=== PATIENT | female | born 1940 | race Caucasian/White ===

== ENCOUNTER → 2017-03-25 | Outpatient (CLI) | payer MEDICARE, BC ==
[~2017-03-25] MED LIST: NATURAL IRON65 MG PO; NO HOME MEDICATIONS; OCUVITE1 TA1 PO; PRINZIDE 12.5 M1 TAB PO; REFRESH TEARS 330 ML OP; ULTRAM 50MG TAB50 MG PO
== END ==
LOC: COL.RAD 07:13
DX: K63.0 Abscess of intestine (principal); K76.89 Other specified diseases of liver; N28.89 Other specified disorders of kidney and ureter; N20.0 Calculus of kidney
CPT/HCPCS: J7050; Q9967

== ENCOUNTER 2017-04-06 06:27 | Inpatient (IN) | payer MEDICARE, BC ==
[2017-04-06] VITALS (10 sets, daily range): BP systolic 91–139; BP diastolic 48–88; PULSE 77–109; TEMP 98–98.9
[~2017-04-06] VITALS: Ht 162.6 cm; Wt 68.2 kg
[~2017-04-06 06:27] MED LIST changes: -NATURAL IRON65 MG PO; -OCUVITE1 TA1 PO; -PRINZIDE 12.5 M1 TAB PO; -REFRESH TEARS 330 ML OP
[2017-04-06] MEDS ORDERED: PRINZIDE 12.5 M1 TAB PO (07:08)
[2017-04-06] MEDS ORDERED: NATURAL IRON65 MG PO (07:09)
[2017-04-06] MEDS ORDERED: OCUVITE1 TA1 PO (07:09)
[2017-04-06] MEDS ORDERED: REFRESH TEARS 330 ML OP (07:10)
[2017-04-06 11:27] LABS: MEAN CELL VOLUME 91 fl (80.0-100.0); MEAN CORPUSCULAR HGB CONC 32 g/dl (33.0-37.0); MEAN PLATELET VOLUME 9.6 fl (7.4-10.4); PLATELET COUNT 221 K/mm3 (130-400); RED BLOOD COUNT 3.49 M/mm3 (4.10-5.30); WHITE BLOOD COUNT 5.8 K/mm3 (4.8-10.8)
[2017-04-06 11:29] LABS: HEMATOCRIT 31.6 % (37.0-47.0); MEAN CORPUSCULAR HEMOGLOBIN 29 pg (27.0-31.0)
[2017-04-06 11:31] LABS: ADJUSTED CALCIUM 8.9 mg/dL (8.4-10.2); ALBUMIN 3.4 gm/dL (3.5-5.0); BILIRUBIN,TOTAL 0.7 mg/dL (0.0-1.0); CALCIUM 8.4 mg/dL (8.4-10.2); CREATININE, serum 0.77 mg/dL (0.52-1.25); POTASSIUM 3.2 mmol/L (3.4-5.0); TOTAL PROTEIN 6.3 gm/dL (6.4-8.2)
[2017-04-07] VITALS (10 sets, daily range): BP systolic 146–167; BP diastolic 57–79; PULSE 68–99; TEMP 97.8–99.1
[2017-04-08 00:20] VITALS: BP 145/76; PULSE 98; TEMP 99
[2017-04-08 05:09] VITALS: BP 161/70; PULSE 97; TEMP 98.5
[2017-04-08 06:39] LABS: CALCIUM 7.8 mg/dL (8.4-10.2); CREATININE, serum 0.73 mg/dL (0.52-1.25); POTASSIUM 3.7 mmol/L (3.4-5.0)
[2017-04-08 08:14] VITALS: BP 154/65; PULSE 95; TEMP 99.2
[2017-04-08 10:32] LABS: HEMOGLOBIN 10.5 g/dl (12.5-16.0)
[2017-04-08 12:55] VITALS: BP 152/64; PULSE 94; TEMP 99.5
[2017-04-08 23:38] VITALS: BP 188/90; PULSE 108; TEMP 98.9
[2017-04-09] VITALS (7 sets, daily range): BP systolic 136–180; BP diastolic 57–95; PULSE 102–111; TEMP 98–99.6
[2017-04-09 09:00] LABS: ADD PATHOLOGY DIFF REVIEW NO
[2017-04-09 09:20] LABS: HEMATOCRIT 34.8 % (37.0-47.0); HEMOGLOBIN 11.1 g/dl (12.5-16.0); MEAN CELL VOLUME 90 fl (80.0-100.0); MEAN CORPUSCULAR HEMOGLOBIN 29 pg (27.0-31.0); MEAN CORPUSCULAR HGB CONC 32 g/dl (33.0-37.0); MEAN PLATELET VOLUME 11.2 fl (7.4-10.4); PLATELET COUNT 286 K/mm3 (130-400); RED BLOOD COUNT 3.89 M/mm3 (4.10-5.30)
[2017-04-09 09:25] LABS: ADJUSTED CALCIUM 9.1 mg/dL (8.4-10.2); ALBUMIN 2.9 gm/dL (3.5-5.0); BILIRUBIN,TOTAL 0.4 mg/dL (0.0-1.0); CALCIUM 8.2 mg/dL (8.4-10.2); CREATININE, serum 0.64 mg/dL (0.52-1.25); POTASSIUM 3.5 mmol/L (3.4-5.0); TOTAL PROTEIN 5.7 gm/dL (6.4-8.2)
[2017-04-09 10:17] LABS: BAND 7 % (0-10); LYMPHOCYTE 7 % (20.0-51.0); NEUTROPHILS 82 % (42.0-75.2); PLATELET ESTIMATE NORMAL (NORMAL); TOTAL CELLS COUNTED 100
[2017-04-10 05:26] VITALS: BP 145/57; BP 153/62; PULSE 102; PULSE 95; TEMP 98.4; TEMP 99.3
[2017-04-10 07:22] LABS: ADD PATHOLOGY DIFF REVIEW NO
[2017-04-10 07:29] LABS: HEMATOCRIT 32.1 % (37.0-47.0); MEAN CELL VOLUME 91 fl (80.0-100.0); MEAN CORPUSCULAR HEMOGLOBIN 28 pg (27.0-31.0); MEAN CORPUSCULAR HGB CONC 31 g/dl (33.0-37.0); MEAN PLATELET VOLUME 10.4 fl (7.4-10.4); PLATELET COUNT 256 K/mm3 (130-400); RED BLOOD COUNT 3.54 M/mm3 (4.10-5.30); WHITE BLOOD COUNT 9.7 K/mm3 (4.8-10.8)
[2017-04-10 08:49] LABS: BAND 2 % (0-10); LYMPHOCYTE 13 % (20.0-51.0); NEUTROPHILS 79 % (42.0-75.2); PLATELET ESTIMATE NORMAL (NORMAL); TOTAL CELLS COUNTED 100
[2017-04-10 08:50] LABS: HYPOCHROMIA 1+
[2017-04-10 09:18] VITALS: BP 149/66; PULSE 97; TEMP 98.9
[2017-04-10 14:08] VITALS: BP 180/87; BP 186/71; PULSE 100; TEMP 99.3
[2017-04-10 16:41] VITALS: BP 172/70; PULSE 96; TEMP 98.9
[2017-04-10 22:53] VITALS: BP 177/79; PULSE 99; TEMP 98.7
[2017-04-11 04:52] VITALS: BP 175/71; PULSE 94; TEMP 98.2
[2017-04-11 09:33] VITALS: BP 178/69; PULSE 95; TEMP 97.4
[2017-04-11 13:01] VITALS: BP 169/74; PULSE 93; TEMP 99
[2017-04-11 16:48] VITALS: BP 207/74; PULSE 93; TEMP 98.9
[2017-04-11 21:40] VITALS: BP 152/67; PULSE 89; TEMP 99.6
[2017-04-12 02:32] VITALS: BP 186/75; PULSE 94; TEMP 98.4
[2017-04-12 06:06] VITALS: BP 173/65; PULSE 87; TEMP 97.8
[2017-04-12 09:42] VITALS: BP 170/70; PULSE 93; TEMP 98.2
[2017-04-12 14:40] VITALS: BP 165/77; PULSE 91; TEMP 98.9
[2017-04-12 18:28] VITALS: BP 157/72; PULSE 91; TEMP 97.9
[2017-04-12 22:00] VITALS: BP 151/65; PULSE 95; TEMP 98.4
[2017-04-13 05:00] VITALS: BP 153/66; PULSE 90; TEMP 97.6
[2017-04-13 09:40] VITALS: BP 164/72; PULSE 96; TEMP 98.4
== END 2017-04-13 12:30 | disposition home or self-care (01) | DRG 329 ==
LOC: SDCO 06:27 → JCC 10:35
PROVIDERS: Obstetrics & Gynecology; Surgery; Urology
PROC: 0DJD8ZZ Inspection of Lower Intestinal Tract, Via Natural or Artificial Opening Endoscopic (ICD-10-PCS; 2017-04-06)
PROC: 8E0W4CZ Robotic Assisted Procedure of Trunk Region, Percutaneous Endoscopic Approach (ICD-10-PCS; 2017-04-07)
PROC: 0DBV4ZX Excision of Mesentery, Percutaneous Endoscopic Approach, Diagnostic (ICD-10-PCS; 2017-04-07)
PROC: 0T9880Z Drainage of Bilateral Ureters with Drainage Device, Via Natural or Artificial Opening Endoscopic (ICD-10-PCS; 2017-04-07)
PROC: 0DTN4ZZ Resection of Sigmoid Colon, Percutaneous Endoscopic Approach (ICD-10-PCS; principal; 2017-04-07 11:30)
PROC: 0UT64ZZ Resection of Left Fallopian Tube, Percutaneous Endoscopic Approach (ICD-10-PCS; 2017-04-07 11:30)
PROC: 0UT14ZZ Resection of Left Ovary, Percutaneous Endoscopic Approach (ICD-10-PCS; 2017-04-07 11:30)
DX: C18.7 Malignant neoplasm of sigmoid colon (principal); K63.1 Perforation of intestine (nontraumatic); C18.6 Malignant neoplasm of descending colon; C79.89 Secondary malignant neoplasm of other specified sites; I10 Essential (primary) hypertension; D50.0 Iron deficiency anemia secondary to blood loss (chronic)
CPT/HCPCS: A4314; A9284; C1769; J0690; J1100; J1170; J1650; J1956; J2250; J2370; J2405; J2550; J2704; J3010; J3480; J7030; J7042

== ENCOUNTER 2017-05-04 11:17 | Day surgery (SDC) | payer MEDICARE, BC ==
[~2017-05-04] VITALS: Ht 162.6 cm; Wt 65.0 kg
[~2017-05-04 11:17] MED LIST changes: +NATURAL IRON65 MG PO; +OCUVITE1 TA1 PO; +PRINZIDE 12.5 M1 TAB PO; +REFRESH TEARS 330 ML OP
[2017-05-04 11:50] VITALS: BP 165/67; PULSE 103; TEMP 97.5
[2017-05-04] MEDS ORDERED: OSCAL 500 TAB500 MG PO (12:11)
[2017-05-04 15:19] VITALS: BP 143/48; PULSE 98; TEMP 97.6
[2017-05-04 15:34] VITALS: BP 139/49; PULSE 94
[2017-05-04] MEDS ORDERED: ROXICODONE 55 MG/TAB PO (15:42)
[2017-05-04 15:49] VITALS: BP 132/53; PULSE 95
[2017-05-04 16:04] VITALS: BP 138/53; PULSE 96
== END 2017-05-04 16:20 | disposition home or self-care (01) ==
LOC: SDCO 11:17
DX: C18.9 Malignant neoplasm of colon, unspecified (principal); I10 Essential (primary) hypertension; D50.0 Iron deficiency anemia secondary to blood loss (chronic); K63.89 Other specified diseases of intestine
CPT/HCPCS: C1788; J1644; J2405; J2704; J7120

== ENCOUNTER → 2017-05-05 | Outpatient (CLI) | payer MEDICARE, BC ==
[~2017-05-05] MED LIST changes: +OSCAL 500 TAB500 MG PO; +ROXICODONE 55 MG/TAB PO
== END ==
LOC: COL.RAD 07:15
DX: K76.89 Other specified diseases of liver (principal); R91.1 Solitary pulmonary nodule; Z95.828 Presence of other vascular implants and grafts; Z85.038 Personal history of other malignant neoplasm of large intestine
CPT/HCPCS: J7050; Q9967

== ENCOUNTER 2017-05-19 13:06 | Inpatient (IN) | payer MEDICARE, BC ==
[~2017-05-19] VITALS: Ht 162.6 cm; Wt 68.2 kg
[2017-05-19 14:10] LABS: HEMATOCRIT 36.3 % (37.0-47.0); MEAN CELL VOLUME 85 fl (80.0-100.0); MEAN CORPUSCULAR HEMOGLOBIN 28 pg (27.0-31.0); MEAN CORPUSCULAR HGB CONC 33 g/dl (33.0-37.0); MEAN PLATELET VOLUME 9.5 fl (7.4-10.4); PLATELET COUNT 340 K/mm3 (130-400); RED BLOOD COUNT 4.29 M/mm3 (4.10-5.30); REDCELL DISTRIBUTION WIDTH-CV 14.6 % (11.5-14.5)
[2017-05-19 14:21] LABS: ALBUMIN 3.3 gm/dL (3.5-5.0); BILIRUBIN,TOTAL 0.5 mg/dL (0.0-1.0); CALCIUM 8.9 mg/dL (8.4-10.2); CREATININE, serum 0.99 mg/dL (0.52-1.25); POTASSIUM 3.2 mmol/L (3.4-5.0); TOTAL PROTEIN 6.7 gm/dL (6.4-8.2)
[2017-05-19 14:27] LABS: BAND 38 % (0-10); LYMPHOCYTE 7 % (20.0-51.0); METAMYELOCYTE 1 % (0-0); NEUTROPHILS 47 % (42.0-75.2); PLATELET ESTIMATE NORMAL (NORMAL); TOXIC GRANULATION PRESENT
[2017-05-19 14:28] LABS: DOHLE BODIES PRESENT
[2017-05-19 14:29] LABS: HYPOCHROMIA 1+
[2017-05-19 18:30] VITALS: BP 140/76; PULSE 66; TEMP 97.8
[2017-05-19 19:42] VITALS: BP 139/60; PULSE 76; TEMP 98.6
[2017-05-19] MEDS ORDERED: ALEVE 220MG220 MG (20:42)
[2017-05-19 23:28] VITALS: BP 142/60; PULSE 80; TEMP 98.6
[2017-05-20 05:04] VITALS: BP 157/68; PULSE 80; TEMP 98.2
[2017-05-20 07:32] LABS: MEAN CELL VOLUME 87 fl (80.0-100.0); MEAN CORPUSCULAR HGB CONC 32 g/dl (33.0-37.0); MEAN PLATELET VOLUME 11.6 fl (7.4-10.4); RED BLOOD COUNT 3.63 M/mm3 (4.10-5.30); REDCELL DISTRIBUTION WIDTH-CV 14.7 % (11.5-14.5)
[2017-05-20 07:38] LABS: HEMATOCRIT 31.7 % (37.0-47.0); HEMOGLOBIN 10.2 g/dl (12.5-16.0); MEAN CORPUSCULAR HEMOGLOBIN 28 pg (27.0-31.0); PLATELET COUNT 223 K/mm3 (130-400)
[2017-05-20 07:41] LABS: CALCIUM 7.9 mg/dL (8.4-10.2); CREATININE, serum 0.77 mg/dL (0.52-1.25); POTASSIUM 3.1 mmol/L (3.4-5.0)
[2017-05-20 08:02] VITALS: BP 152/58; PULSE 76; TEMP 98.4
[2017-05-20 08:42] LABS: BAND 29 % (0-10); BASOPHIL 1 % (0-2); LYMPHOCYTE 19 % (20.0-51.0); NEUTROPHILS 49 % (42.0-75.2); PLATELET ESTIMATE NORMAL (NORMAL)
[2017-05-20 10:42] LABS: COLLECTION METHOD CLEAN CATCH
[2017-05-20 11:00] LABS: MUCOUS Present /lpf; PH 5 (5-8); SQUAMOUS EPITHELIAL 0-2 /hpf; URINE APPEARANCE Clear; URINE BACTERIA None Seen /hpf; URINE BILIRUBIN Negative (NEGATIVE); URINE BLOOD 2+ (NEGATIVE); URINE COLOR Yellow; URINE GLUCOSE Negative (NEGATIVE); URINE KETONE Trace (NEGATIVE); URINE LEUKOCYTE ESTERASE Trace (NEGATIVE); URINE NITRATE Negative (NEGATIVE); URINE PROTEIN(semi-quant) 1+ (NEGATIVE); URINE UROBILINOGEN Negative (NEGATIVE)
[2017-05-20 11:34] VITALS: BP 145/57; PULSE 78; TEMP 97.9
[2017-05-20 16:00] VITALS: BP 160/65; PULSE 78; TEMP 98.4
[2017-05-20 20:56] VITALS: BP 154/74; PULSE 88; TEMP 97.8
[2017-05-21] VITALS (7 sets, daily range): BP systolic 144–166; BP diastolic 62–78; PULSE 78–95; TEMP 97.7–98.5
[2017-05-21 06:39] LABS: MEAN CELL VOLUME 88 fl (80.0-100.0); MEAN CORPUSCULAR HGB CONC 32 g/dl (33.0-37.0); MEAN PLATELET VOLUME 10.4 fl (7.4-10.4); PLATELET COUNT 152 K/mm3 (130-400); RED BLOOD COUNT 3.67 M/mm3 (4.10-5.30); REDCELL DISTRIBUTION WIDTH-CV 14.6 % (11.5-14.5)
[2017-05-21 06:53] LABS: HEMATOCRIT 32.2 % (37.0-47.0); HEMOGLOBIN 10.3 g/dl (12.5-16.0); MEAN CORPUSCULAR HEMOGLOBIN 28 pg (27.0-31.0)
[2017-05-21 06:57] LABS: CALCIUM 7.7 mg/dL (8.4-10.2); CREATININE, serum 0.6 mg/dL (0.52-1.25); POTASSIUM 3.2 mmol/L (3.4-5.0)
[2017-05-21 08:55] LABS: BAND 17 % (0-10); EOSINOPHIL 1 % (0-4); LYMPHOCYTE 14 % (20.0-51.0); NEUTROPHILS 60 % (42.0-75.2); PLATELET ESTIMATE NORMAL (NORMAL)
[2017-05-22 00:46] VITALS: BP 161/72; PULSE 81; TEMP 98.9
[2017-05-22 04:28] VITALS: BP 154/70; PULSE 80; TEMP 98.3
[2017-05-22 07:23] LABS: MEAN CELL VOLUME 88 fl (80.0-100.0); MEAN CORPUSCULAR HGB CONC 32 g/dl (33.0-37.0); MEAN PLATELET VOLUME 10.5 fl (7.4-10.4); PLATELET COUNT 113 K/mm3 (130-400); RED BLOOD COUNT 4.09 M/mm3 (4.10-5.30); REDCELL DISTRIBUTION WIDTH-CV 14.6 % (11.5-14.5)
[2017-05-22 07:25] LABS: HEMOGLOBIN 11.4 g/dl (12.5-16.0); MEAN CORPUSCULAR HEMOGLOBIN 28 pg (27.0-31.0)
[2017-05-22 07:33] LABS: CALCIUM 7.7 mg/dL (8.4-10.2); CREATININE, serum 0.6 mg/dL (0.52-1.25); MAGNESIUM 1.4 mg/dL (1.6-2.3); POTASSIUM 3.3 mmol/L (3.4-5.0)
[2017-05-22 08:42] LABS: BAND 13 % (0-10); LYMPHOCYTE 26 % (20.0-51.0); NEUTROPHILS 56 % (42.0-75.2)
[2017-05-22 08:44] LABS: HYPOCHROMIA 1+; PLATELET ESTIMATE DECREASED (NORMAL)
[2017-05-22 09:06] VITALS: BP 167/73; PULSE 83; TEMP 97.6
[2017-05-22 12:24] VITALS: BP 156/65; PULSE 89; TEMP 97.8
[2017-05-22 15:44] VITALS: BP 162/67; PULSE 81; TEMP 97.3
[2017-05-22 20:03] VITALS: BP 160/63; PULSE 88; TEMP 98
[2017-05-23] VITALS (7 sets, daily range): BP systolic 150–178; BP diastolic 58–77; PULSE 76–92; TEMP 97.6–98.9
[2017-05-23 06:13] LABS: RED BLOOD COUNT 3.75 M/mm3 (4.10-5.30)
[2017-05-23 06:14] LABS: MEAN CELL VOLUME 87 fl (80.0-100.0); MEAN CORPUSCULAR HGB CONC 32 g/dl (33.0-37.0); MEAN PLATELET VOLUME 9.7 fl (7.4-10.4); PLATELET COUNT 64 K/mm3 (130-400); REDCELL DISTRIBUTION WIDTH-CV 14.6 % (11.5-14.5)
[2017-05-23 06:18] LABS: HEMATOCRIT 32.7 % (37.0-47.0); HEMOGLOBIN 10.4 g/dl (12.5-16.0); MEAN CORPUSCULAR HEMOGLOBIN 28 pg (27.0-31.0)
[2017-05-23 06:27] LABS: CALCIUM 7.7 mg/dL (8.4-10.2); CREATININE, serum 0.54 mg/dL (0.52-1.25); MAGNESIUM 1.5 mg/dL (1.6-2.3); POTASSIUM 3.2 mmol/L (3.4-5.0)
[2017-05-23 07:20] LABS: BAND 14 % (0-10); EOSINOPHIL 2 % (0-4); LYMPHOCYTE 20 % (20.0-51.0); NEUTROPHILS 59 % (42.0-75.2); PLATELET ESTIMATE DECREASED (NORMAL)
[2017-05-23 07:21] LABS: HYPOCHROMIA 2+
[2017-05-24 03:30] VITALS: BP 160/68; PULSE 78; TEMP 98.4
[2017-05-24 07:55] LABS: MEAN CELL VOLUME 87 fl (80.0-100.0); MEAN CORPUSCULAR HGB CONC 32 g/dl (33.0-37.0); MEAN PLATELET VOLUME 10.1 fl (7.4-10.4); RED BLOOD COUNT 3.79 M/mm3 (4.10-5.30); REDCELL DISTRIBUTION WIDTH-CV 14.6 % (11.5-14.5)
[2017-05-24 08:10] LABS: CALCIUM 7.7 mg/dL (8.4-10.2); CREATININE, serum 0.57 mg/dL (0.52-1.25); MAGNESIUM 1.5 mg/dL (1.6-2.3); POTASSIUM 3.8 mmol/L (3.4-5.0)
[2017-05-24 08:15] LABS: HEMATOCRIT 33.1 % (37.0-47.0); HEMOGLOBIN 10.5 g/dl (12.5-16.0); MEAN CORPUSCULAR HEMOGLOBIN 28 pg (27.0-31.0); PLATELET COUNT 46 K/mm3 (130-400)
[2017-05-24 09:53] VITALS: BP 118/86; PULSE 97; TEMP 97.5
[2017-05-24 10:13] LABS: BAND 8 % (0-10); EOSINOPHIL 2 % (0-4); LYMPHOCYTE 24 % (20.0-51.0); METAMYELOCYTE 1 % (0-0); NEUTROPHILS 61 % (42.0-75.2); PLATELET ESTIMATE DECREASED (NORMAL)
[2017-05-24 10:14] LABS: HYPOCHROMIA 1+
[2017-05-24 13:03] VITALS: BP 170/68; PULSE 101; TEMP 98.5
[2017-05-24 16:48] VITALS: BP 155/59; PULSE 87; TEMP 98.7
[2017-05-24 19:31] VITALS: BP 176/90; PULSE 89; TEMP 98.1
[2017-05-24 22:14] VITALS: BP 163/69
[2017-05-25 00:21] VITALS: BP 173/71; PULSE 85; TEMP 98.4
[2017-05-25 03:43] VITALS: BP 173/78; PULSE 84; TEMP 98.3
[2017-05-25 07:07] LABS: MEAN CELL VOLUME 88 fl (80.0-100.0); MEAN CORPUSCULAR HGB CONC 32 g/dl (33.0-37.0); MEAN PLATELET VOLUME 11.3 fl (7.4-10.4); REDCELL DISTRIBUTION WIDTH-CV 14.8 % (11.5-14.5)
[2017-05-25 07:15] LABS: HEMATOCRIT 31.5 % (37.0-47.0); MEAN CORPUSCULAR HEMOGLOBIN 28 pg (27.0-31.0); PLATELET COUNT 44 K/mm3 (130-400)
[2017-05-25 07:27] LABS: CALCIUM 7.7 mg/dL (8.4-10.2); CREATININE, serum 0.49 mg/dL (0.52-1.25); MAGNESIUM 1.5 mg/dL (1.6-2.3); POTASSIUM 3.3 mmol/L (3.4-5.0)
[2017-05-25 07:39] LABS: BAND 25 % (0-10); BASOPHIL 2 % (0-2); EOSINOPHIL 2 % (0-4); LYMPHOCYTE 24 % (20.0-51.0); NEUTROPHILS 45 % (42.0-75.2); PLATELET ESTIMATE DECREASED (NORMAL)
[2017-05-25 07:40] LABS: TOXIC GRANULATION PRESENT
[2017-05-25 08:01] VITALS: BP 178/72; PULSE 90; TEMP 98.5
[2017-05-25 10:57] VITALS: BP 141/83; PULSE 93; TEMP 98.5
[2017-05-25 15:56] VITALS: BP 154/67; PULSE 91; TEMP 97.9
[2017-05-25 19:51] VITALS: BP 151/71; PULSE 90; TEMP 99
[2017-05-26 00:27] VITALS: BP 154/69; PULSE 87; TEMP 98.7
[2017-05-26 04:38] VITALS: BP 159/70; PULSE 81; TEMP 98.6
[2017-05-26 05:57] LABS: MEAN CELL VOLUME 88 fl (80.0-100.0); MEAN CORPUSCULAR HGB CONC 32 g/dl (33.0-37.0); MEAN PLATELET VOLUME 10.5 fl (7.4-10.4); PLATELET COUNT 54 K/mm3 (130-400); RED BLOOD COUNT 3.28 M/mm3 (4.10-5.30); REDCELL DISTRIBUTION WIDTH-CV 14.8 % (11.5-14.5)
[2017-05-26 06:02] LABS: HEMATOCRIT 28.7 % (37.0-47.0); HEMOGLOBIN 9.1 g/dl (12.5-16.0); MEAN CORPUSCULAR HEMOGLOBIN 28 pg (27.0-31.0)
[2017-05-26 06:09] LABS: CALCIUM 7.8 mg/dL (8.4-10.2); CREATININE, serum 0.52 mg/dL (0.52-1.25); POTASSIUM 3.8 mmol/L (3.4-5.0)
[2017-05-26 07:17] LABS: BAND 53 % (0-10); BASOPHIL 1 % (0-2); LYMPHOCYTE 20 % (20.0-51.0); NEUTROPHILS 23 % (42.0-75.2); OVALOCYTES 1+; PLATELET ESTIMATE DECREASED (NORMAL)
[2017-05-26 07:59] VITALS: BP 152/78; PULSE 86; TEMP 98.3
[2017-05-26 10:10] LABS: HEPARIN INDUCED ANTIBODY Positive (Negative); HEPARIN INDUCED OD 2.054 (())
[2017-05-26 11:45] VITALS: BP 158/68; PULSE 92; TEMP 98.6
[2017-05-26] MEDS ORDERED: FLAGYL500 MG PO (12:49)
[2017-05-26] MEDS ORDERED: IMODIUM 2MG CAPS2 MG PO (12:50)
[2017-05-26] MEDS ORDERED: ZESTRIL 10MG10 MG PO (12:50)
[2017-05-26] MEDS ORDERED: MAGNESIUM ELEM300 MG PO (13:08)
== END 2017-05-26 15:15 | disposition home or self-care (01) | DRG 392 ==
LOC: COL.ER 13:06 → MEDICAL 15:43
PROVIDERS: Emergency Medicine; Internal Medicine; Physician Assistant
DX: K52.9 Noninfective gastroenteritis and colitis, unspecified (principal); C78.7 Secondary malignant neoplasm of liver and intrahepatic bile duct; E87.1 Hypo-osmolality and hyponatremia; D61.818 Other pancytopenia; I10 Essential (primary) hypertension; R55 Syncope and collapse; E87.6 Hypokalemia; E83.42 Hypomagnesemia; Z85.038 Personal history of other malignant neoplasm of large intestine
CPT/HCPCS: 99223-AI; 99232-AI; 99233-AI; 99239; J0696; J1644; J1650; J3475; J7030; J7050; Q9967

== ENCOUNTER → 2017-06-01 | Outpatient (CLI) | payer MEDICARE, BC ==
[~2017-06-01] MED LIST changes: +ALEVE 220MG220 MG; +FLAGYL500 MG PO; +IMODIUM 2MG CAPS2 MG PO; +MAGNESIUM ELEM300 MG PO; +ZESTRIL 10MG10 MG PO
== END ==
LOC: COL.VAS 16:24
DX: I82.4Z2 Acute embolism and thrombosis of unspecified deep veins of left distal lower extremity (principal); I82.412 Acute embolism and thrombosis of left femoral vein

== ENCOUNTER 2017-07-20 14:30 | Inpatient (IN) | payer MEDICARE, BC ==
[~2017-07-20] VITALS: Ht 162.6 cm; Wt 54.8 kg
[~2017-07-20 14:30] MED LIST changes: +ELIQUIS 5MG PO; +FERROUS SU325 MG/TAB PO; +K-TAB20 PO; +MAG-OX 400400 MG/TAB PO; +PRINIVIL10 MG PO; +REGLAN 5MG T5 MG/TAB PO; +TRANSDERM-0.5 MG/21 TD; +VANCOCIN H125 MG/CAP PO
[2017-07-20 17:45] VITALS: BP 151/63; PULSE 89; TEMP 98.3
[2017-07-21 04:27] VITALS: BP 130/62; PULSE 112; TEMP 98.1
[2017-07-21 15:49] VITALS: BP 131/56; PULSE 81; TEMP 98.3
[2017-07-22 06:00] VITALS: BP 127/48; PULSE 91; TEMP 98
[2017-07-22 07:52] LABS: BASO % 0.5 % (0.0-2.0); GRAN % 64.3 % (42.2-75.2); LYMPH # 1.8 (1.2-3.4); LYMPH % 29.2 % (20.0-51.0); MEAN CELL VOLUME 90 fl (80.0-100.0); MEAN CORPUSCULAR HGB CONC 32 g/dl (33.0-37.0); MEAN PLATELET VOLUME 9.7 fl (7.4-10.4); MONO # 0.3 (0.1-0.6); PLATELET COUNT 189 K/mm3 (130-400); RED BLOOD COUNT 2.65 M/mm3 (4.10-5.30); REDCELL DISTRIBUTION WIDTH-CV 17.5 % (11.5-14.5)
[2017-07-22 08:07] LABS: HEMATOCRIT 23.8 % (37.0-47.0); HEMOGLOBIN 7.7 g/dl (12.5-16.0); MEAN CORPUSCULAR HEMOGLOBIN 29 pg (27.0-31.0)
[2017-07-22 08:08] LABS: CALCIUM 7.7 mg/dL (8.4-10.2); CREATININE, serum 0.52 mg/dL (0.52-1.25); MAGNESIUM 1.8 mg/dL (1.6-2.3); POTASSIUM 3.9 mmol/L (3.4-5.0)
[2017-07-22 16:31] VITALS: BP 110/57; PULSE 68; TEMP 98
[2017-07-23 05:59] VITALS: BP 123/53; PULSE 84; TEMP 97.9
[2017-07-23 15:48] VITALS: BP 122/47; PULSE 97; TEMP 98.1
[2017-07-24 06:00] VITALS: BP 130/56; PULSE 81; TEMP 98.1
[2017-07-24 16:40] VITALS: BP 128/50; PULSE 86; TEMP 98.6
[2017-07-25 06:49] VITALS: BP 130/53; PULSE 80; TEMP 98
[2017-07-25 16:25] VITALS: BP 128/51; PULSE 91; TEMP 98
[2017-07-26 06:32] VITALS: BP 138/49; PULSE 86; TEMP 98.2
[2017-07-26 06:51] LABS: MEAN CELL VOLUME 94 fl (80.0-100.0); MEAN CORPUSCULAR HGB CONC 31 g/dl (33.0-37.0); PLATELET COUNT 227 K/mm3 (130-400); RED BLOOD COUNT 2.59 M/mm3 (4.10-5.30); REDCELL DISTRIBUTION WIDTH-CV 18.6 % (11.5-14.5)
[2017-07-26 06:54] LABS: HEMATOCRIT 24.4 % (37.0-47.0); HEMOGLOBIN 7.6 g/dl (12.5-16.0); MEAN CORPUSCULAR HEMOGLOBIN 29 pg (27.0-31.0)
[2017-07-26 07:07] LABS: CALCIUM 7.7 mg/dL (8.4-10.2); CREATININE, serum 0.5 mg/dL (0.52-1.25); MAGNESIUM 2.1 mg/dL (1.6-2.3)
[2017-07-26 07:39] LABS: BAND 9 % (0-10); HYPOCHROMIA 2+; LYMPHOCYTE 37 % (20.0-51.0); NEUTROPHILS 51 % (42.0-75.2); PLATELET ESTIMATE NORMAL (NORMAL)
[2017-07-26 07:41] LABS: ANISOCYTOSIS 1+
[2017-07-26 18:30] VITALS: BP 144/64; PULSE 87; TEMP 98.8
[2017-07-27 06:30] VITALS: BP 138/49; PULSE 90; TEMP 97.9
[2017-07-27 17:24] VITALS: BP 135/50; PULSE 94; TEMP 98.2
[2017-07-28 06:01] VITALS: BP 130/48; PULSE 87; TEMP 98.2
[2017-07-28] MEDS ORDERED: MAG-OX 400400 MG/TAB PO (08:01)
[2017-07-28] MEDS ORDERED: ZOFRAN ODT4 MG PO (08:02)
== END 2017-07-28 12:00 | disposition home health service (06) | DRG 92 ==
PROVIDERS: Internal Medicine
DX: G72.81 Critical illness myopathy (principal); N17.9 Acute kidney failure, unspecified; C18.8 Malignant neoplasm of overlapping sites of colon; C79.9 Secondary malignant neoplasm of unspecified site; A04.72 Enterocolitis due to Clostridium difficile, not specified as recurrent; E87.1 Hypo-osmolality and hyponatremia; E44.0 Moderate protein-calorie malnutrition; E86.0 Dehydration; I10 Essential (primary) hypertension; D50.0 Iron deficiency anemia secondary to blood loss (chronic); E87.6 Hypokalemia
CPT/HCPCS: 99222-AI; 99232-AI; 99239